=== PATIENT | male | born 1950 | race Caucasian/White ===

== ENCOUNTER → 2017-01-07 | Outpatient (CLI) | payer OTHER ==
[~2017-01-07] MED LIST: AMLO-114 PO; MULT-506 PO
[2017-01-07 10:17] LABS: ESTIMATED AVERAGE GLUCOSE 126 mg/dl; HA1C FLAG Normal (Normal)
[2017-01-07 11:45] LABS: CHOLESTEROL/HDL RATIO 5.6
== END | disposition home or self-care (01) ==
LOC: C.LAB 09:19
PROVIDERS: ATTEND Nurse Practitioner Adult Health
DX: E11.9 Type 2 diabetes mellitus without complications (principal); E78.00 Pure hypercholesterolemia, unspecified; Z87.891 Personal history of nicotine dependence

== ENCOUNTER → 2018-01-20 | Outpatient (CLI) | payer OTHER ==
[2018-01-20 12:19] LABS: BASO % 1.1 %; BASO ABS # 0.05 K/uL (0-0.2); EOS % 3.1 %; EOS ABS # 0.14 K/uL (0-0.5); HEMATOCRIT 45.3 % (42-52); HEMOGLOBIN 15.9 g/dL (14.0-18.0); IG# 0.02 K/uL (0.00-0.02); LYMPH % 27.7 %; LYMPH ABS # 1.25 K/uL (1.2-3.4); MEAN CELL VOLUME 92.1 fL (80-100); MEAN CORPUSCULAR HEMOGLOBIN 32.3 pg (25-34); MEAN CORPUSCULAR HGB CONC 35.1 g/dl (32-36); MONO % 10.4 %; MONO ABS # 0.47 K/uL (0.11-0.59); NEUT % 57.3 %; NEUT ABS # 2.59 K/uL (1.4-6.5); PLATELET COUNT 234 K/uL (130-400); RED CELL DISTRIBUTION WIDTH CV 12.9 % (11.5-14.5); RED CELL DISTRIBUTION WIDTH SD 43.4 fL (36.4-46.3); WHITE BLOOD COUNT 4.52 K/uL (4.8-10.8)
[2018-01-20 12:43] LABS: ALT/SGPT 39 U/L (12-78); AST/SGOT 16 U/L (15-37); BLOOD UREA NITROGEN 17 mg/dl (7-18); CALCIUM 9.1 mg/dl (8.5-10.1); CARBON DIOXIDE 25 mmol/L (21-32); CHOLESTEROL 198 mg/dl (0-200); GLUCOSE 121 mg/dl (70-99); POTASSIUM 4.2 mmol/L (3.5-5.1); SODIUM 139 mmol/L (136-145)
[2018-01-20 12:52] LABS: ALKALINE PHOSPHATASE 60 U/L (45-117); LDL CHOLESTEROL CALCULATED 138 mg/dl; TOTAL PROTEIN 7.6 gm/dl (6.4-8.2)
[2018-01-20 13:26] LABS: HEMOGLOBIN A1C 6.3 % (4.5-5.6)
== END | disposition home or self-care (01) ==
LOC: C.LAB 11:17
PROVIDERS: ATTEND Nurse Practitioner Family
DX: I10 Essential (primary) hypertension (principal); E78.00 Pure hypercholesterolemia, unspecified; E11.9 Type 2 diabetes mellitus without complications

== ENCOUNTER 2018-02-23 17:53 | Emergency (ER) | payer OTHER ==
[~2018-02-23] VITALS: Ht 175.3 cm; Wt 91.0 kg
[2018-02-23 17:56] VITALS: TEMP 37; Ht 175.3 cm; Wt 91.0 kg
[2018-02-23] MEDS ORDERED: IBUPROFEN 600 MG TAB PO STA (18:08)
[2018-02-23] MEDS ORDERED: SODIUM CHLORIDE 0.9% 1000ML 1,000 ML IV STA (18:34)
[2018-02-23] MEDS ORDERED: ONDANSETRON INJ 2 MG/ML 2 ML VIAL IV STA (18:34)
[2018-02-23] MEDS ORDERED: OPTIRAY 320 IV PRN (18:45)
[2018-02-23 18:53] LABS: BASO % 0.8 %; BASO ABS # 0.05 K/uL (0-0.2); EOS % 2.2 %; EOS ABS # 0.14 K/uL (0-0.5); HEMATOCRIT 45.9 % (42-52); HEMOGLOBIN 16.4 g/dL (14.0-18.0); IG# 0.01 K/uL (0.00-0.02); LYMPH % 23.1 %; MEAN CORPUSCULAR HEMOGLOBIN 32.2 pg (25-34); MEAN CORPUSCULAR HGB CONC 35.7 g/dl (32-36); MEAN PLATELET VOLUME 9.8 fL (7.4-10.4); MONO % 8.5 %; MONO ABS # 0.55 K/uL (0.11-0.59); NEUT % 65.2 %; NEUT ABS # 4.23 K/uL (1.4-6.5); PLATELET COUNT 219 K/uL (130-400); RED CELL DISTRIBUTION WIDTH CV 13.1 % (11.5-14.5); RED CELL DISTRIBUTION WIDTH SD 42.8 fL (36.4-46.3); WHITE BLOOD COUNT 6.48 K/uL (4.8-10.8)
[2018-02-23 18:54] LABS: ISTAT CREATININE 1.1 mg/dl (0.6-1.3); ISTAT IONIZED CALCIUM 1.14 mmol/l (1.12-1.32); ISTAT POTASSIUM 3.8 mEq/L (3.3-5.0)
[2018-02-23] MEDS ORDERED: GLC/500 PO (19:09)
[2018-02-23] MEDS ORDERED: LISI10TA PO (19:09)
[2018-02-23] MEDS ORDERED: ATOR-22 PO (19:09)
[2018-02-23 19:16] LABS: ALBUMIN 4.3 gm/dl (3.4-5.0); ALT/SGPT 33 U/L (12-78); AST/SGOT 17 U/L (15-37); BLOOD UREA NITROGEN 14 mg/dl (7-18); CALCIUM 9.3 mg/dl (8.5-10.1); CARBON DIOXIDE 25 mmol/L (21-32); CREATININE 1.18 mg/dl (0.60-1.40); GLUCOSE 106 mg/dl (70-99); LIPASE 227 U/L (73-393); POTASSIUM 3.7 mmol/L (3.5-5.1); SODIUM 136 mmol/L (136-145)
[2018-02-23 19:19] LABS: ALKALINE PHOSPHATASE 68 U/L (45-117); TOTAL PROTEIN 8.3 gm/dl (6.4-8.2)
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
[2018-02-23] MEDS ORDERED: LIDO/EPINEPHRINE/SOD BICARB 20 ML VIAL INFIL ONE (19:53)
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
[2018-02-23 20:31] VITALS: BP 160/79; PULSE 72; O2SAT 98
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
--- NOTE | 2018-02-27 09:02 | EDITING REQUIRED CODING QUERY ---
LENGTH OF LACERATION To promote full compliance with coding requirements relating to patient care, physician participation is requested in all cases of dedicated owner operator uncertainty. Please assist us with the question(s) below: Please document the length of the forehead laceration. Please type the length in cm within the parenthesis ( ) below. Documentation states 3cm and 2.5cm. Forehead laceration is ( ) cm. Thank you Debbie Mcnally
== END 2018-02-23 20:30 | disposition home or self-care (01) ==
LOC: EDBD 17:53 → C.EDB 17:55
DX: S01.81XA Laceration without foreign body of other part of head, initial encounter (principal); M79.622 Pain in left upper arm; S40.021A Contusion of right upper arm, initial encounter; V43.52XA Car driver injured in collision with other type car in traffic accident, initial encounter; Y92.488 Other paved roadways as the place of occurrence of the external cause; I10 Essential (primary) hypertension; E11.9 Type 2 diabetes mellitus without complications; Z87.891 Personal history of nicotine dependence; Z88.0 Allergy status to penicillin; Z88.6 Allergy status to analgesic agent; Z88.8 Allergy status to other drugs, medicaments and biological substances